=== PATIENT | female | born 1960 | race Caucasian/White ===

== ENCOUNTER → 2020-12-14 16:24 | Outpatient (CLI) | payer OTHER, SELFPAY ==
[2020-12-14] MEDS: COVID-19 VACC #1, MRNA(MOD) 100 MCG/0.5 ML VIAL IM (16:29)
== END ==
PROVIDERS: Visit Provider Internal Medicine
DX: Z23 Encounter for immunization (principal)
CPT/HCPCS: 0011A; 91301

== ENCOUNTER → 2021-01-11 14:40 | Outpatient (CLI) | payer OTHER, SELFPAY ==
[2021-01-11] MEDS: COVID-19 VACC #2, MRNA(MOD) 100 MCG/0.5 ML VIAL IM (14:47)
== END ==
PROVIDERS: Visit Provider Internal Medicine
DX: Z23 Encounter for immunization (principal)
CPT/HCPCS: 0012A; 91301